=== PATIENT | female | born 1945 | race Caucasian/White ===

== ENCOUNTER 2020-06-16 10:43 | Inpatient (IN) | payer MEDICARE, BC ==
[2020-06-16] MEDS ORDERED: Bisacodyl 10 MG Supp RECTAL PRN (14:21)
[2020-06-16] MEDS ORDERED: Ondansetron 4 MG/2 ML SDV IV PRN (14:21)
--- NOTE | 2020-06-16 14:32 | PCM.HP.2 ---
H&P History of Present Illness - General Date of Service: 06/16/20 Admit Problem/Dx: Admission Diagnosis/Problem Admission Diagnosis/Problem Wound infection following procedure Source of Information: Patient, Old Records History Limitations: Reports: No Limitations - History of Present Illness Initial Comments - Free Text/Narative: Pt here for swing bed admit Had wound debridement on right lateral knee and has wound vac and is on IV antibiotics Onset of Symptoms: Reports: Gradual Location: Reports: Lower Extremity, Right Context: Reports: Other (Post OP) - Related Data Allergies/Adverse Reactions: Allergies Allergy/AdvReac Type Severity Reaction Status Date / Time adhesive Allergy Rash Verified 06/16/20 13:46 ciprofloxacin [From Cipro] Allergy unknown Verified 06/16/20 13:50 codeine Allergy UNKNOWN Verified 06/03/16 12:19 erythromycin base Allergy unknown Verified 06/16/20 13:50 hydrocodone Allergy Itching Verified 06/28/16 08:09 ibuprofen Allergy UNKNOWN Verified 06/03/16 12:19 ketorolac [From Toradol] Allergy unknown Verified 06/16/20 13:50 lansoprazole [From Prevacid] Allergy UNKNOWN Verified 06/03/16 12:19 latex Allergy Redness Verified 06/28/16 08:42 levothyroxine sodium Allergy UNKNOWN Verified 06/03/16 12:19 [From Synthroid] naproxen Allergy unknown Verified 06/16/20 13:50 nickel Allergy Rash Verified 06/16/20 13:50 NSAIDS (Non-Steroidal Allergy unkown Verified 06/16/20 13:50 Anti-Inflamma pantoprazole [From Protonix] Allergy unknown Verified 06/16/20 13:50 Penicillins Allergy UNKNOWN Verified 06/03/16 12:19 Sulfa (Sulfonamide Allergy UNKNOWN Verified 06/03/16 12:19 Antibiotics) tramadol Allergy Cannot Verified 06/16/20 13:50 Remember Co-Q10 Allergy unknown Uncoded 06/16/20 13:50 Home Medications: Home Meds Thyroid [[place] Thyroid] 2 tab PO SUTH@0800 06/27/16 [History] Ezetimibe [Zetia] 5 mg PO MOWEFRSA@2000 06/28/16 [History] Acetaminophen [Acetaminophen Extra Strength] 500 mg PO Q3HR PRN 06/16/20 [History] Cefepime [Maxipime] 2 gm IV Q8HR MDD right knee infection 06/16/20 [History] Cranberry 500 mg PO DAILY 06/16/20 [History] Dextrose [Glucose] 16 gm PO ASDIRECTED PRN 06/16/20 [History] Docusate Sodium [Colace] 100 mg PO BID 06/16/20 [History] Enoxaparin [Lovenox] 40 mg SUBCUT BEDTIME 06/16/20 [History] Glucagon,Human Recombinant [Glucagen] 1 mg IM ASDIRECTED PRN 06/16/20 [History] Heparin Sodium [Heparin Lock Flush] 300 unit IV Q8HR 06/16/20 [History] Insulin Aspart [NovoLOG] See Protocol SQ TIDMEALS 06/16/20 [History] Magnesium Oxide 200 mg PO MOWEFRSA@0800 06/16/20 [History] Metoclopramide [Reglan] 5 mg IV Q6HR PRN 06/16/20 [History] Ondansetron [Zofran] 4 mg IV Q4HR PRN 06/16/20 [History] Scopolamine 1 patch TOP Q3DX4 06/16/20 [History] Sennosides/Docusate Sodium [Senna-S] 1 tab PO BID PRN 06/16/20 [History] Sodium Chloride 0.9% [Saline Flush] 10 ml IVPUSH ASDIRECTED PRN 06/16/20 [History] Sodium Chloride 0.9% [Saline Flush] 10 ml IVPUSH Q12HR 06/16/20 [History] Thyroid [[place] Thyroid] 1 tab PO MOTUWEFRSA@0800 06/16/20 [History] bisacodyL [Bisacodyl] 10 mg RC DAILY PRN 06/16/20 [History] Past Medical History HEENT History: Reports: Other (See Below) Other HEENT History: Chronic allergies, vertigo Cardiovascular History: Reports: High Cholesterol, Other (See Below) Other Cardiovascular History: History of palipitations Gastrointestinal History: Reports: Hiatal Hernia Endocrine/Metabolic History: Reports: Hypothyroidism - Past Surgical History HEENT Surgical History: Reports: Adenoidectomy, Eye Surgery, Naso-Sinus Surgery, Tonsillectomy, Other (See Below) H&P Review of Systems - Review of Systems: Review Of Systems: See Below Pulmonary: Reports: No Symptoms Cardiovascular: Reports: No Symptoms Gastrointestinal: Reports: No Symptoms Skin: Reports: Other (Wound debridement with wound vac) Exam - Exam Exam: See Below - Exam Neck: Supple Lungs: Clear to Auscultation Cardiovascular: Regular Rate GI/Abdominal Exam: Non-Tender Extremities: Other (RLE with dressing in place) Neuro Extensive - Mental Status: Alert, Oriented x3, Normal Mood/Affect Problem List Initiated/Reviewed/Updated: Yes Orders Last 24hrs: Active Orders 24 hr Category Date Time Status Patient Status [ADT] Routine ADT 06/16/20 14:15 Ordered Ambulate [RC] ASDIRECTED Care 06/16/20 14:14 Ordered Height and Weight [RC] PER UNIT ROUTINE Care 06/16/20 14:18 Ordered Oxygen Therapy [RC] PRN Care 06/16/20 14:15 Ordered Up With Assistance [RC] ASDIRECTED Care 06/16/20 14:14 Ordered VTE/DVT Education [RC] PER UNIT ROUTINE Care 06/16/20 14:15 Ordered Vital Signs [RC] PER UNIT ROUTINE Care 06/16/20 14:15 Ordered OT Evaluation and Treatment [CONS] Routine Cons 06/16/20 14:14 Ordered PT Evaluation and Treatment [CONS] Routine Cons 06/16/20 14:14 Ordered Regular Diet [DIET] Diet 06/16/20 Dinner Ordered ALANINE AMINOTRANSFERASE,ALT [CHEM] Routine Lab 06/22/20 05:11 Ordered CBC WITH AUTO DIFF [HEME] Routine Lab 06/22/20 05:11 Ordered CREATININE W/GFR [CHEM] Routine Lab 06/22/20 05:11 Ordered CRP [C-REACTIVE PROTEIN] [CHEM] Routine Lab 06/22/20 05:11 Ordered SEDIMENTATION RATE AUTO [HEME] Routine Lab 06/22/20 05:11 Ordered Acetaminophen [Tylenol Extra Strength] Med 06/16/20 14:21 Ordered 500 mg PO Q3HR PRN Cefepime [Maxipime] Med 06/16/20 16:00 Ordered 2 gm IV Q8HR Cranberry Med 06/17/20 08:00 Ordered 500 mg PO DAILY Docusate Sodium [Colace] Med 06/16/20 18:00 Ordered 100 mg PO BID Docusate Sodium/Sennosides [Senna Plus] Med 06/16/20 14:21 Ordered 1 tab PO BID PRN Ezetimibe [Zetia] Med 06/17/20 20:00 Ordered 5 mg PO MOWEFRSA@2000 Heparin Sodium [Heparin Lock Flush 100 Units/ML] Med 06/16/20 16:00 Ordered 300 units FLUSH Q8HR Magnesium Oxide [Magnesium Oxide] Med 06/17/20 08:00 Ordered 200 mg PO MOWEFRSA@0800 Ondansetron [Zofran] Med 06/16/20 14:21 Ordered 4 mg IV Q4HR PRN Scopolamine [Transderm-Scop] Med 06/16/20 14:30 Ordered 1 patch TOP Q3DX4 Sodium Chloride 0.9% [Saline Flush] Med 06/16/20 14:21 Ordered 10 ml FLUSH ASDIRECTED PRN Thyroid [[place] Thyroid] Med 06/17/20 08:00 Ordered 1 tab PO MOTUWEFRSA@0800 Thyroid [[place] Thyroid] Med 06/18/20 08:00 Ordered 2 tab PO SUTH@0800 bisacodyL [Dulcolax] Med 06/16/20 14:21 Ordered 10 mg RECTAL DAILY PRN Resuscitation Status Routine Resus Stat 06/16/20 14:14 Ordered Medication Orders Acetaminophen (Tylenol Extra Strength) 500 mg PO Q3HR PRN PRN Reason: Pain Bisacodyl (Dulcolax) 10 mg RECTAL DAILY PRN PRN Reason: Constipation Cefepime HCl (Maxipime) 2 gm IV Q8HR JUANA Cranberry (Cranberry) 500 mg PO DAILY JUANA Docusate Sodium (Colace) 100 mg PO BID JUANA Ezetimibe (Zetia) 5 mg PO MOWEFRSA@2000 JUANA Heparin Sodium (Porcine) (Heparin Lock Flush 100 Units/Ml) 300 units FLUSH Q8HR JUANA Non-Formulary Medication (Magnesium Oxide [Magnesium Oxide]) 200 mg PO MOWEFRSA@0800 JUANA Non-Formulary Medication (Thyroid [[place] Thyroid]) 1 tab PO MOTUWEFRSA@0800 JUANA Non-Formulary Medication (Thyroid [[place] Thyroid]) 2 tab PO SUTH@0800 JUANA Ondansetron HCl (Zofran) 4 mg IV Q4HR PRN PRN Reason: Nausea Scopolamine (Transderm-Scop) mg TOP Q3DX4 JUANA Senna/Docusate Sodium (Senna Plus) 1 tab PO BID PRN PRN Reason: Constipation Sodium Chloride (Saline Flush) 10 ml FLUSH ASDIRECTED PRN PRN Reason: Keep Vein Open Assessment/Plan Comment:: Imp: Wound debridement with wound vac RLE Plan; Wound care IV antibiotics - Mortality Measure Prognosis:: Good
[2020-06-16] MEDS ORDERED: Cefepime 2 GM Vial IV SCH (16:00)
[2020-06-16] MEDS: Cefepime 2 GM in Sodium Chloride 0.9% 100 ML IV SCH ×2 (16:32→23:46)
[2020-06-16] MEDS: Sodium Chloride 0.9% 10 ML Syringe FLUSH SCH ×3 (16:33→23:47)
[2020-06-16] MEDS: Scopolamine 1.5 MG Transdermal Patch TOP SCH (16:38)
[2020-06-16] MEDS: REMOVE SCOPALAMINE TRDERM SCH (16:40)
[2020-06-16] MEDS: Docusate Sodium 100 MG Cap PO SCH (17:04)
[2020-06-16] MEDS: Acetaminophen 500 MG Tab PO PRN (20:09)
[2020-06-16] MEDS: Cyclobenzaprine 10 MG Tab PO PRN (22:28)
[2020-06-16] MEDS ORDERED: diphenhydrAMINE 50 MG/ML SDV IVPUSH PRN (22:35)
[2020-06-17] MEDS: Sodium Chloride 0.9% 10 ML Syringe FLUSH SCH ×5 (00:28→17:31)
[2020-06-17] MEDS ORDERED: Cranberry 500 MG Cap PO SCH (08:00)
[2020-06-17] MEDS: Magnesium Oxide 400 MG Tab PO SCH (08:03)
[2020-06-17] MEDS: Cranberry 500 MG Cap PO SCH (08:03)
[2020-06-17] MEDS: Docusate Sodium 100 MG Cap PO SCH ×2 (08:04→17:55)
[2020-06-17] MEDS: ARMOUR THYROID 60 MG PO SCH (08:06)
[2020-06-17] MEDS: Cefepime 2 GM in Sodium Chloride 0.9% 100 ML IV SCH ×2 (08:07→16:25)
[2020-06-17] MEDS: Sodium Chloride 0.9% 10 ML Syringe FLUSH PRN ×2 (08:52→16:26)
[2020-06-17] MEDS: Ezetimibe 10 MG Tab PO SCH (19:28)
[2020-06-17] MEDS: Cyclobenzaprine 10 MG Tab PO PRN (21:07)
[2020-06-18] MEDS: Cefepime 2 GM in Sodium Chloride 0.9% 100 ML IV SCH ×4 (00:22→23:05)
[2020-06-18] MEDS: Sodium Chloride 0.9% 10 ML Syringe FLUSH SCH ×8 (00:23→23:35)
[2020-06-18] MEDS: Cranberry 500 MG Cap PO SCH (07:57)
[2020-06-18] MEDS: Docusate Sodium 100 MG Cap PO SCH ×2 (07:58→18:15)
[2020-06-18] MEDS: ARMOUR THYROID 60 MG PO SCH (08:01)
[2020-06-18] MEDS: Sodium Chloride 0.9% 10 ML Syringe FLUSH PRN (08:38)
[2020-06-18] MEDS: Cyclobenzaprine 10 MG Tab PO PRN (22:22)
[2020-06-19] MEDS: Cranberry 500 MG Cap PO SCH (07:41)
[2020-06-19] MEDS: Magnesium Oxide 400 MG Tab PO SCH (07:41)
[2020-06-19] MEDS: Docusate Sodium 100 MG Cap PO SCH ×2 (07:41→17:16)
[2020-06-19] MEDS: Sodium Chloride 0.9% 10 ML Syringe FLUSH SCH ×4 (07:41→17:56)
[2020-06-19] MEDS: ARMOUR THYROID 60 MG PO SCH (07:41)
[2020-06-19] MEDS: Cefepime 2 GM in Sodium Chloride 0.9% 100 ML IV SCH ×2 (07:41→17:15)
[2020-06-19] MEDS: Acetaminophen 500 MG Tab PO PRN (13:39)
[2020-06-19] MEDS: Scopolamine 1.5 MG Transdermal Patch TOP SCH (17:15)
[2020-06-19] MEDS: REMOVE SCOPALAMINE TRDERM SCH (17:16)
[2020-06-19] MEDS: Ezetimibe 10 MG Tab PO SCH (19:32)
[2020-06-19] MEDS: Cyclobenzaprine 10 MG Tab PO PRN (22:07)
[2020-06-20] MEDS: Sodium Chloride 0.9% 10 ML Syringe FLUSH SCH ×8 (00:23→23:43)
[2020-06-20] MEDS: Cefepime 2 GM in Sodium Chloride 0.9% 100 ML IV SCH ×4 (00:23→23:41)
[2020-06-20] MEDS: Magnesium Oxide 400 MG Tab PO SCH (08:12)
[2020-06-20] MEDS: Cranberry 500 MG Cap PO SCH (08:12)
[2020-06-20] MEDS: Docusate Sodium 100 MG Cap PO SCH ×2 (08:12→18:39)
[2020-06-20] MEDS: ARMOUR THYROID 60 MG PO SCH (08:15)
[2020-06-20] MEDS: Ezetimibe 10 MG Tab PO SCH (20:18)
[2020-06-20] MEDS: Cyclobenzaprine 10 MG Tab PO PRN (22:08)
[2020-06-21] MEDS: Cefepime 2 GM in Sodium Chloride 0.9% 100 ML IV SCH ×3 (08:49→23:05)
[2020-06-21] MEDS: Cranberry 500 MG Cap PO SCH (08:49)
[2020-06-21] MEDS: Docusate Sodium 100 MG Cap PO SCH ×2 (08:49→17:00)
[2020-06-21] MEDS: Sodium Chloride 0.9% 10 ML Syringe FLUSH SCH ×6 (08:49→23:35)
[2020-06-21] MEDS: ARMOUR THYROID 60 MG PO SCH (08:55)
[2020-06-21] MEDS: Cyclobenzaprine 10 MG Tab PO PRN (22:16)
[2020-06-22] MEDS: Magnesium Oxide 400 MG Tab PO SCH (07:53)
[2020-06-22] MEDS: Docusate Sodium 100 MG Cap PO SCH ×2 (07:53→17:08)
[2020-06-22] MEDS: Cranberry 500 MG Cap PO SCH (07:54)
[2020-06-22] MEDS: ARMOUR THYROID 60 MG PO SCH (07:59)
[2020-06-22] MEDS: Cefepime 2 GM in Sodium Chloride 0.9% 100 ML IV SCH ×3 (08:00→23:21)
[2020-06-22] MEDS: Sodium Chloride 0.9% 10 ML Syringe FLUSH SCH ×6 (08:01→23:21)
[2020-06-22] MEDS: Sodium Chloride 0.9% 10 ML Syringe FLUSH PRN (08:48)
[2020-06-22] MEDS: REMOVE SCOPALAMINE TRDERM SCH (16:12)
[2020-06-22] MEDS: Scopolamine 1.5 MG Transdermal Patch TOP SCH (16:13)
[2020-06-22] MEDS: Ezetimibe 10 MG Tab PO SCH (19:13)
[2020-06-23] MEDS: Cyclobenzaprine 10 MG Tab PO PRN (00:02)
[2020-06-23] MEDS: Sodium Chloride 0.9% 10 ML Syringe FLUSH SCH ×7 (02:23→23:48)
[2020-06-23] MEDS: Cranberry 500 MG Cap PO SCH (07:43)
[2020-06-23] MEDS: Docusate Sodium 100 MG Cap PO SCH ×2 (07:43→17:00)
[2020-06-23] MEDS: Cefepime 2 GM in Sodium Chloride 0.9% 100 ML IV SCH ×3 (07:43→23:48)
[2020-06-23] MEDS: ARMOUR THYROID 60 MG PO SCH (07:46)
[2020-06-23] MEDS: Acetaminophen 500 MG Tab PO PRN (19:14)
[2020-06-24] MEDS: Magnesium Oxide 400 MG Tab PO SCH (08:22)
[2020-06-24] MEDS: ARMOUR THYROID 60 MG PO SCH (08:22)
[2020-06-24] MEDS: Cranberry 500 MG Cap PO SCH (08:22)
[2020-06-24] MEDS: Cefepime 2 GM in Sodium Chloride 0.9% 100 ML IV SCH ×3 (08:23→23:44)
[2020-06-24] MEDS: Docusate Sodium 100 MG Cap PO SCH ×2 (08:23→20:10)
[2020-06-24] MEDS: Sodium Chloride 0.9% 10 ML Syringe FLUSH SCH ×6 (08:23→23:44)
[2020-06-24 08:49] VITALS: PULSE 82
[2020-06-24] MEDS: Ezetimibe 10 MG Tab PO SCH (20:10)
[2020-06-24] MEDS: Acetaminophen 500 MG Tab PO PRN (21:29)
[2020-06-25] MEDS: Docusate Sodium 100 MG Cap PO SCH (07:11)
[2020-06-25] MEDS: Cefepime 2 GM in Sodium Chloride 0.9% 100 ML IV SCH (07:11)
[2020-06-25] MEDS: Cranberry 500 MG Cap PO SCH (07:11)
[2020-06-25] MEDS: Sodium Chloride 0.9% 10 ML Syringe FLUSH SCH ×2 (07:13→08:11)
[2020-06-25] MEDS: ARMOUR THYROID 60 MG PO SCH (07:15)
[2020-06-25] MEDS: Sodium Chloride 0.9% 10 ML Syringe FLUSH PRN (07:17)
[2020-06-25 08:41] VITALS: BP 143/67
--- NOTE | 2020-06-25 16:16 | PCM.DCSUM1 ---
Discharge Summary - Hospital Course HPI Initial Comments: See admission H&P Brief History: See admission H&P Diagnosis: Stroke: No Modified Yovani Scale: No Symptoms at All Modified Yovani Scale Score: 0 - Discharge Data Discharge Date: 06/25/20 Discharge Disposition: Home, W Home Health Agency 06 Condition: Good - Referral to Home Health Date of Face to Face Encounter: 06/25/20 Reason for Homebound Status: Nonhealing ulcer of the right knee requiring limited weightbearing and biweekly wound VAC changes Primary Care Physician: Dali Drew NP Skilled Need: As above, including assessments for returned infection, etc.. Wound VAC dressing changes under the guidance of [facility] plastic surgery on a Tuesdays and Fridays basis until otherwise directed. - Discharge Diagnosis/Problem(s) (1) Cellulitis SNOMED Code(s): 864421302 ICD Code: L03.90 - CELLULITIS, UNSPECIFIED Status: Acute Priority: High Current Visit: Yes Problem Details: Nonhealing stage III ulcer with secondary cellulitis over the lateral surface of the right knee requiring aggressive IV antibiotic therapy and wound VAC therapy as below. 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 Patient was transferred from [facility] to our facility for swing bed care with last dose of cefepime on 06/22/2020 at 23:21 hours. The patient was seen by infectious disease and also plastic surgery at [facility] on 06/25 with patient to be discharged from swing bed today. Infectious disease did discontinue her IV antibiotics and PICC line during today's visit. Next follow-up with plastic surgery already scheduled on 07/03/2020. Qualifiers: Site of cellulitis: extremity Site of cellulitis of extremity: lower extremity Laterality: right Qualified Code(s): L03.115 - Cellulitis of right lower limb (2) Nonhealing ulcer of right lower extremity SNOMED Code(s): 84550224 ICD Code: L97.919 - NON-PRS CHRONIC ULC UNSP PRT OF R LOW LEG W UNSP SEVERITY Status: Acute Priority: High Current Visit: Yes Problem Details: As above. Twice daily wound VAC changes in this facility during her swing bed care with close follow-up on a regular basis with both infectious disease and plastic surgery at [facility] with last visit on 06/25/2020 as above. Patient will be discharged on home health secondary to her limited mobility and required twice daily wound VAC change requirements. [facility] providers were in charge of her blood work, follow-up visits, etc. Qualifiers: Non-pressure ulcer stage: with fat layer exposed Qualified Code(s): L97.912 - Non-pressure chronic ulcer of unspecified part of right lower leg with fat layer exposed (3) Hypothyroidism (acquired) SNOMED Code(s): 949486468 ICD Code: E03.9 - HYPOTHYROIDISM, UNSPECIFIED Status: Chronic Priority: Medium Current Visit: Yes Problem Details: Currently under therapy. Continue close follow-up by her regular providers. (4) Hypertension SNOMED Code(s): 14558509 ICD Code: I10 - ESSENTIAL (PRIMARY) HYPERTENSION Status: Chronic Priority: Medium Current Visit: Yes Problem Details: Overall good control during her swing bed care. Occasionally mildly elevated blood pressures. Continue to observe closely by her regular providers with no change in medical therapy for now. Qualifiers: Hypertension type: essential hypertension Qualified Code(s): I10 - Essential (primary) hypertension (5) Osteoarthritis SNOMED Code(s): 567935290 ICD Code: M19.90 - UNSPECIFIED OSTEOARTHRITIS, UNSPECIFIED SITE Status: Chronic Priority: Medium Current Visit: Yes Problem Details: Otherwise stable by history with no current pain or discomfort. Qualifiers: Osteoarthritis location: multiple joints Osteoarthritis type: primary Qualified Code(s): M89.49 - Other hypertrophic osteoarthropathy, multiple sites (6) Hypomagnesemia SNOMED Code(s): 654863771 ICD Code: E83.42 - HYPOMAGNESEMIA Status: Chronic Priority: Medium Current Visit: Yes Problem Details: Currently under therapy. Continue to observe closely by her regular providers. (7) Hyperlipidemia SNOMED Code(s): 24408050 ICD Code: E78.5 - HYPERLIPIDEMIA, UNSPECIFIED Status: Chronic Priority: Medium Current Visit: Yes Problem Details: Currently under therapy. Continue to observe closely by her regular providers. Qualifiers: Hyperlipidemia type: unspecified Qualified Code(s): E78.5 - Hyperlipidemia, unspecified - Patient Summary/Data Operative Procedure(s) Performed: Periodic wound debridement by plastic surgery at [facility] with no procedures performed in this facility during her swing bed care. Complications: None Consults: Consultations 06/16/20 14:14 OT Evaluation and Treatment [CONS] Routine PT Evaluation and Treatment [CONS] Routine 06/16/20 15:06 Consult to Case Management/Senior Staff Consultant [CONS] Routine 06/25/20 12:51 Consult to Home Care [Consult to Home Health] [CONS] Routine Labs Pending at D/C: None with blood work controlled by [facility] in [place] Recommended Follow-up Testing/Procedures: As per discharge instructions Planned Operative Procedure(s) after DC: None Hospital Course: The patient was admitted to our swing bed unit for IV antibiotic therapy and wound VAC care as above. Majority of her care was conducted by [facility] providers as above. No complications during her swing bed care in this facility. She also received PT and OT during this hospitalization. - Patient Instructions Diet: Heart Healthy Diet (Diverticulosis) Activity: As Tolerated (With limited weightbearing of the right leg and knee as directed by your [place] providers) Driving: Do Not Drive Showering/Bathing: May Shower Wound/Incision Care: Keep Operative Site/Wound Site Clean and Dry Wound/Incision, Other: Home health will change your wound VAC dressings on a Tuesdays and Fridays Notify Provider of: Fever, Increased Pain, Swelling and Redness, Drainage Other/Special Instructions: 1. Follow-up with plastic surgery at [facility] in [place] as already scheduled on 07/03/2020. 2. Home health has been arranged for your wound VAC changes on Tuesdays and Fridays until otherwise directed by your [place] providers. 3. Immediately after this visit verify that your cellular telephone's voicemail has been activated and is empty. Also verify that your home telephone's answering machine is operating properly and has space to receive messages. Note that it is sometimes necessary for us to be able to contact you at a later date to discuss your medical care. 4. Please remember that we are ALWAYS here for you and want to answer any questions you may have. Feel free to call the hospital any time and we call you back YUDI. - Discharge Plan *PRESCRIPTION DRUG MONITORING PROGRAM REVIEWED*: Not Applicable *COPY OF PRESCRIPTION DRUG MONITORING REPORT IN PATIENT MIRNA: Not Applicable Home Medications: Home Meds Thyroid [[facility] [place] Thyroid] 2 tab PO SUTH@0800 06/27/16 [History] Ezetimibe [Zetia] 5 mg PO MOWEFRSA@199906/28/16 [History] Acetaminophen [Acetaminophen Extra Strength] 500 mg PO Q3HR PRN 06/16/20 [History] Cranberry 500 mg PO DAILY 06/16/20 [History] Docusate Sodium [Colace] 100 mg PO BID 06/16/20 [History] Magnesium Oxide 200 mg PO MOWEFRSA@0800 06/16/20 [History] Sennosides/Docusate Sodium [Senna-S] 1 tab PO BID PRN 06/16/20 [History] Thyroid [[facility] Thyroid] 1 tab PO MOTUWEFRSA@0800 06/16/20 [History] bisacodyL [Bisacodyl] 10 mg RC DAILY PRN 06/16/20 [History] Non-Formulary Medication [NF Drug] 2 each PO SUTH@0800 each 06/25/20 [Rx] Oxygen Therapy Mode: Room Air Patient Handouts: Cellulitis, Adult, [id number] - Discharge Summary/Plan Comment DC Time >30 min.: Yes (Coordination of care ) Discharge Summary/Plan Comment: As above. Extensive precautions were given to the patient, who is in agreement with the treatment plan. See Patient Instructions for further treatment and plan. - General Info Date of Service: 06/25/20 Admission Dx/Problem (Free Text: Admission Diagnosis/Problem Admission Diagnosis/Problem Wound infection following procedure Functional Status: Reports: Pain Controlled, Tolerating Diet, Ambulating, Urinating. Denies: New Symptoms, Incentive Spirometry - Review of Systems General: Denies: Fever (Temperature of 37.6 degrees on 06/23/2020), Weakness, Fatigue, Malaise, Chills, Night Sweats, Appetite (Adequate) HEENT: Reports: Glasses. Denies: Dysphasia, Ear Pain, Eye Pain, Headaches, Sinus Congestion, Sore Throat, Rhinitis, Visual Changes Pulmonary: Reports: No Symptoms. Denies: Shortness of Breath, Pleuritic Chest Pain, Cough, Sputum, Hemoptysis, Wheezing Cardiovascular: Reports: No Symptoms. Denies: Chest Pain, Palpitations, Dyspnea on Exertion, Orthopnea, PND, Edema, Lightheadedness Gastrointestinal: Reports: No Symptoms, Other (Normal bowel movement this morning). Denies: Abdominal Pain, Constipation, Decreased Appetite, Diarrhea, Difficulty Swallowing, Flatus, Hematochezia, Melena, Nausea, Vomiting Genitourinary: Reports: No Symptoms. Denies: Dysuria, Frequency, Burning, Pain, Urgency, Incontinence, Hematuria, Retention, Flank Pain Musculoskeletal: Denies: Neck Pain, Shoulder Pain, Arm Pain, Hand Pain, Back Pain, Leg Pain (Despite nonhealing ulcer), Foot Pain, Joint Pain, Joint Swelling Skin: Reports: Other (None healing stage III ulcer as above). Denies: Diaphoresis, Bruising, Pruritis, Rash Neurological: Reports: No Symptoms. Denies: Confusion, Paresthesia, Weakness Psychiatric: Reports: No Symptoms. Denies: Confusion, Depression, Anxiety, Agitation, Hallucinations - Patient Data Vitals - Most Recent: Last Vital Signs Temp 36.6 C 06/25/20 08:00 Pulse 82 06/25/20 08:00 Resp 14 06/25/20 08:00 BP 143/67 H 06/25/20 08:00 Pulse Ox 97 06/25/20 08:00 Vital Signs (72 hours) 06/23/20 06/23/20 06/23/20 07:49 09:50 17:03 Temperature [ 37.6 C 37.2 C Oral] Temperature [ 37.2 C Temporal] Pulse, 88 94 Peripheral [ Right Pulse Oximetry] Respiratory 20 Rate Blood Pressure 141/65 H 146/71 H [Left Upper Arm ] O2 Sat by Pulse 96 Oximetry 06/24/20 06/24/20 06/25/20 08:00 16:31 08:00 Temperature [ 37.1 C 36.8 C Oral] Temperature [ 37.6 C 36.6 C Temporal] Pulse, 82 82 Peripheral [ Right Pulse Oximetry] Respiratory 16 14 Rate Blood Pressure 147/69 H 143/67 H [Left Upper Arm ] O2 Sat by Pulse 98 97 Oximetry Weight - Most Recent: 74.707 kg I&O - Last 24 hours: Intake & Output 06/25/20 06/25/20 06/25/20 06:59 14:59 22:59 Intake Total 500 Balance 500 Imaging Impressions - Last 24 hrs: None Laboratory Tests 06/22/20 06/22/20 Range/Units 07:20 07:20 WBC 6.1 (4.0-10.2) K/uL RBC 4.34 (3.77-5.09) M/uL Hgb 13.1 D (11.7-15.5) g/dL Hct 40.2 (34.0-46.0) % MCV 92.6 (84.0-98.0) fL MCH 30.2 (28.2-33.3) pg MCHC 32.6 (31.7-36.0) g/dL RDW 13.8 (11.2-14.1) % Plt Count 185 (150-350) K/uL Neut % (Auto) 57.1 (45.0-80.0) % Lymph % (Auto) 24.4 (10.0-50.0) % Gove % (Auto) 12.5 (2.0-14.0) % Eos % (Auto) 4.5 (0.0-5.0) % Baso % (Auto) 1.5 (0.0-2.0) % Neut # (Auto) 3.46 (1.40-7.00) K/uL Lymph # (Auto) 1.48 (0.50-3.50) K/uL Gove # (Auto) 0.76 (0.00-1.00) K/uL Eos # (Auto) 0.27 (0.00-0.50) K/uL Baso # (Auto) 0.09 (0.00-0.20) K/uL ESR 20 (0-30) mm/hr Creatinine 0.71 (0.51-1.17) mg/dL Est Cr Clr Drug Dosing 56.61 mL/min Estimated GFR (MDRD) > 60 mL/min ALT 16 (12-78) U/L C-Reactive Protein 1.0 H (<=0.9) mg/dL Lab Results - Last 24 hrs: As above PIEDAD Results - Last 24 hrs: None Med Orders - Current: Current Medications Acetaminophen (Tylenol Extra Strength) 500 mg PO Q3HR PRN PRN Reason: Pain Last Admin: 06/24/20 21:29 Dose: 500 mg Documented by: Bisacodyl (Dulcolax) 10 mg RECTAL DAILY PRN PRN Reason: Constipation Cranberry (Cranberry) 1,000 mg PO DAILY JUANA Last Admin: 06/25/20 07:11 Dose: 1,000 mg Documented by: Cyclobenzaprine HCl (Flexeril) 10 mg PO TID PRN PRN Reason: restless legs, pain Last Admin: 06/23/20 00:02 Dose: 10 mg Documented by: Diphenhydramine HCl (Benadryl) 25 mg IVPUSH Q8H PRN PRN Reason: Itching Last Admin: 06/16/20 23:46 Dose: 25 mg Documented by: Docusate Sodium (Colace) 100 mg PO BID [facility] Last Admin: 06/25/20 07:11 Dose: 100 mg Documented by: Ezetimibe (Zetia) 5 mg PO MOWEFRSA@2000 [facility] Last Admin: 06/24/20 20:10 Dose: 5 mg Documented by: Heparin Sodium (Porcine) (Heparin Lock Flush 100 Units/Ml) 300 units FLUSH Q8H [facility] Last Admin: 06/25/20 08:11 Dose: Not Given Documented by: Cefepime HCl 2 gm/ Sodium (Chloride) 100 mls @ 200 mls/hr IV Q8H [facility] Last Admin: 06/25/20 07:11 Dose: 200 mls/hr Documented by: Magnesium Oxide (Magnesium Oxide) 200 mg PO MOWEFRSA@0800 [facility] Last Admin: 06/24/20 08:22 Dose: 200 mg Documented by: Miscellaneous Information (Remove Patch) 1 ea TRDERM Q3D [facility] Last Admin: 06/22/20 16:12 Dose: 1 ea Documented by: Millie Thyroid 60mg (Tablets Pt Own Med) 1 each PO MOTUWEFRSA@0800 [facility] Last Admin: 06/24/20 08:22 Dose: 1 each Documented by: Millie Thyroid 60mg (Tablets) 2 each PO SUTH@0800 [facility] Last Admin: 06/25/20 07:15 Dose: 2 each Documented by: Ondansetron HCl (Zofran) 4 mg IV Q4HR PRN PRN Reason: Nausea Scopolamine (Transderm-Scop) 1.5 mg TOP Q3D [facility] Last Admin: 06/22/20 16:13 Dose: 1.5 mg Documented by: Senna/Docusate Sodium (Senna Plus) 1 tab PO BID PRN PRN Reason: Constipation Sodium Chloride (Saline Flush) 10 ml FLUSH ASDIRECTED PRN PRN Reason: Keep Vein Open Last Admin: 06/25/20 07:17 Dose: 10 ml Documented by: Sodium Chloride (Saline Flush) 10 ml FLUSH Q8H [facility] Last Admin: 06/25/20 07:13 Dose: 10 ml Documented by: Sodium Chloride (Saline Flush) 10 ml FLUSH Q8H [facility] Last Admin: 06/25/20 08:11 Dose: Not Given Documented by: Discontinued Medications Cranberry (Cranberry) 500 mg PO DAILY [facility] Thyroid ([facility] Thyroid) 60 mg PO MOTUWEFRSA@0800 JUANA Thyroid ([facility] Thyroid) 120 mg PO SUTH@0800 [facility] - Exam Quality Assessment: Reports: DVT Prophylaxis. Denies: Supplemental Oxygen, Central Line/PICC, Urine Catheter, Skin Breakdown, Restraints General: Reports: Alert, Oriented, Cooperative, No Acute Distress HEENT: Reports: Pupils Equal, Pupils Reactive, EOMI, Mucous Membr. Moist/[place], Other (Patient is wearing glasses). Denies: Scleral Icterus Neck: Reports: Supple, Trachea Midline, No JVD, No Thyromegaly. Denies: Lymphadenopathy Lungs: Reports: Clear to Auscultation, Normal Respiratory Effort. Denies: Rub Cardiovascular: Reports: Regular Rate, Regular Rhythm, No Murmurs. Denies: Gallops, Rubs GI/Abdominal Exam: Normal Bowel Sounds, Soft, Non-Tender, No Organomegaly, No Distention, No Abnormal Bruit, No Mass, Pelvis Stable. No: Guarding (Female) Exam: Deferred Rectal (Female) Exam: Deferred Back Exam: Reports: Normal Inspection, Full Range of Motion. Denies: CVA Te nderness (L), CVA Tenderness (R), Muscle Spasm Skin: Reports: Other (Wound VAC dressing over the lateral surface of the right knee). Denies: Rash, Ecchymosis Wound/Incisions: Reports: Healing Well, Dressing Dry and Intact Neurological: Reports: No New Focal Deficit Psy/Mental Status: Reports: Alert, Normal Affect, Normal Mood. Denies: Agitated, Hallucinations, Withdrawal Symptoms
[2020-06-25] MEDS: REMOVE SCOPALAMINE TRDERM SCH (16:35)
== END 2020-06-25 16:40 | disposition home health service (06) | DRG 603 ==
LOC: LL.MS 13:56 → UNDOADMIN 13:56 → LL.MS 14:15 → UNDOADMIN 14:15
PROVIDERS: ADMIT Family Medicine; ATTEND Family Medicine
DX: L03.115 Cellulitis of right lower limb (principal); L97.912 Non-pressure chronic ulcer of unspecified part of right lower leg with fat layer exposed; Z96.651 Presence of right artificial knee joint; I10 Essential (primary) hypertension; E03.9 Hypothyroidism, unspecified; M19.90 Unspecified osteoarthritis, unspecified site; E83.42 Hypomagnesemia; E78.5 Hyperlipidemia, unspecified; Z79.899 Other long term (current) drug therapy; E78.00 Pure hypercholesterolemia, unspecified; Z98.890 Other specified postprocedural states; Z79.890 Hormone replacement therapy; K44.9 Diaphragmatic hernia without obstruction or gangrene
CPT/HCPCS: 36415; 82565; 84460; 85025; 85652; 86140; 96523; 97110-GP; 97161-GP; 97165-GO; 97530-GP; 97535-GO; 97605; A9270-GY; J0692; J1200; J1642; J7050

== ENCOUNTER 2022-01-24 10:42 | Emergency (ER) | payer MEDICARE, BC ==
[2022-01-24 10:47] VITALS: BP 137/76; PULSE 70
== END 2022-01-24 11:40 | disposition home or self-care (01) ==
LOC: LL.ED 10:42
DX: S39.012A Strain of muscle, fascia and tendon of lower back, initial encounter (principal); E03.9 Hypothyroidism, unspecified; Z79.899 Other long term (current) drug therapy; Z88.1 Allergy status to other antibiotic agents; Z88.5 Allergy status to narcotic agent; Z91.048 Other nonmedicinal substance allergy status; Z88.6 Allergy status to analgesic agent; Z91.040 Latex allergy status; Z88.2 Allergy status to sulfonamides; Z88.0 Allergy status to penicillin; Z88.8 Allergy status to other drugs, medicaments and biological substances; X58.XXXA Exposure to other specified factors, initial encounter
CPT/HCPCS: 99283

== ENCOUNTER 2022-04-17 16:42 | Emergency (ER) | payer MEDICARE, BC ==
[2022-04-17] MEDS ORDERED: Sodium Chloride 0.9% 10 ML Syringe FLUSH PRN (17:01)
[2022-04-17] MEDS ORDERED: Sodium Chloride 0.9% 1,000 ML IV ONE (17:02)
[2022-04-17] MEDS ORDERED: Ondansetron 4 MG/2 ML SDV IVPUSH ONE (17:03)
[2022-04-17] MEDS ORDERED: LORazepam 1 MG Tab PO ONE (17:03)
[2022-04-17 17:41] LABS: CHLORIDE,CL 103 mmol/L (98-107); SODIUM,NA 141 mmol/L (136-145)
[2022-04-17 17:42] LABS: ANION GAP 13.5 meq/L (7-15); ESTIMATED GFR 74 mL/min (>=60)
[2022-04-17 22:20] VITALS: BP 124/56; PULSE 57
== END 2022-04-17 19:15 | disposition home or self-care (01) ==
LOC: LL.ED 16:42
DX: R42 Dizziness and giddiness (principal); Z91.048 Other nonmedicinal substance allergy status; Z88.1 Allergy status to other antibiotic agents; Z88.5 Allergy status to narcotic agent; Z88.6 Allergy status to analgesic agent; Z91.040 Latex allergy status; Z88.0 Allergy status to penicillin; Z88.2 Allergy status to sulfonamides; Z88.8 Allergy status to other drugs, medicaments and biological substances; Z79.899 Other long term (current) drug therapy
CPT/HCPCS: 36415; 80053; 83735; 84484; 85025; 85610; 85730; 93005; 93010; 96361; 96374; 99283; 99284; J2405; J7030

== ENCOUNTER 2024-04-11 10:26 | Day surgery (SDC) | payer MEDICARE ==
[~2024-04-11 10:26] MED LIST: Midazolam 1 MG/ML 2 ML SDV ONE; Propofol 200 MG/20 ML SDV ONE
[2024-04-11] MEDS ORDERED: Sodium Chloride 0.9% 10 ML Syringe FLUSH PRN (10:45)
[2024-04-11] MEDS: Lactated Ringers 1,000 ML IV SCH (11:07)
[2024-04-11] MEDS ORDERED: Glycopyrrolate 0.2 MG/ML SDV IVPUSH ONE (11:44)
[2024-04-11] MEDS ORDERED: Propofol 200 MG/20 ML SDV IV ONE (11:44)
[2024-04-11] MEDS ORDERED: Lidocaine 2% 5 ML SDV ONE (11:44)
[2024-04-11 12:30] VITALS: BP 116/82; PULSE 79
== END 2024-04-11 13:13 | disposition home or self-care (01) ==
LOC: LL.SDS 10:26
PROVIDERS: ATTEND Surgery
DX: K21.9 Gastro-esophageal reflux disease without esophagitis (principal); E78.5 Hyperlipidemia, unspecified; E03.9 Hypothyroidism, unspecified; Z79.890 Hormone replacement therapy; Z79.899 Other long term (current) drug therapy; Z88.0 Allergy status to penicillin; Z88.1 Allergy status to other antibiotic agents; Z88.5 Allergy status to narcotic agent; Z88.6 Allergy status to analgesic agent; Z88.8 Allergy status to other drugs, medicaments and biological substances
CPT/HCPCS: 43239; J1596; J2250; J2704; J7120; 00731; 88305; J3490